=== PATIENT | male | born 1970 | race African-American/Black ===

== ENCOUNTER 2016-06-05 16:44 | Emergency (ER) | payer SELFPAY ==
[~2016-06-05] VITALS: Ht 180.3 cm; Wt 109.3 kg
[2016-06-05] MEDS ORDERED: IBUPROFEN600 MG ORAL (18:29)
[2016-06-05 18:47] VITALS: BP 121/81
--- NOTE | 2016-06-05 22:24 | Emergency Room Report ---
History of Present Illness General Chief Complaint: Lower Extremity Injury Source: Patient Present Illness HPI This is a 46-year-old male who presented after increased lower extremity pain to his left knee. Patient had gradual onset of symptoms. She denied prior history of similar pain. He reported having increased swelling. He denied any recent illness. 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 He denies prior history of gout. He denied any numbness or tingling to his lower extremities Allergies: Coded Allergies: No Known Allergies (Unverified , 06/05/16) Patient History Past Medical History: see triage record Reviewed Nursing Documentation: PMH: Agreed, PSxH: Agreed Nursing Documentation-PM Past Medical History: No Stated History Review of Systems All Other Systems: negative except mentioned in HPI Physical Exam Vital Signs Date Time Temp Pulse Resp B/P Pulse Ox O2 Delivery O2 Flow Rate FiO2 06/05/16 16:58 97.9 80 17 127/86 98 Room Air Sp02 EP Interpretation: reviewed, normal General Appearance: normal inspection, well appearing, no apparent distress, alert, GCS 15 Head: atraumatic ENT: normal ENT inspection, hearing grossly normal, normal voice Neck: normal inspection, full range of motion, supple, no bony tend Respiratory: normal inspection, lungs clear, normal breath sounds, no respiratory distress, no retraction, no wheezing Cardiovascular #1: regular rate, rhythm, no edema Gastrointestinal: normal inspection, normal bowel sounds, non tender, soft, no guarding, no hernia Genitourinary: no CVA tenderness Musculoskeletal: back normal, normal range of motion, swelling - left knee with slight laxity anterior drawer. Neurologic: normal inspection, alert, responsive, speech normal Psychiatric: normal inspection, judgement/insight normal, mood/affect normal Skin: normal inspection, normal color, no rash Medical Decision Making Diagnostic Impression: Primary Impression: Arthritis ER Course The patient presented for knee pain.Patient presented for knee pain. Differential diagnosis included was not limited to popliteal aneurysm, arthritis , dislocation, ligamentous injury, septic joint among others. imaging studies were ordered. The patient is advised to follow up with primary care doctor for orthopedic referral. Patient is advised that he may need MRI as well as further imaging. He is placed in an Etienne wrap. He declined crutches. Patient is advised to return if any worsening condition or if any changes in status that are concerning. Last Vital Signs Date Time Temp Pulse Resp B/P Pulse Ox O2 Delivery O2 Flow Rate FiO2 06/05/16 18:47 97.8 78 17 121/81 98 Room Air Status: improved Disposition: HOME, SELF-CARE Condition: Stable Scripts Ibuprofen* (MOTRIN*) 600 Mg Tablet 600 MG ORAL Q8H Y for For Pain, #30 TAB 0 Refills Prov: Garrison Martinez 06/05/16 Referrals: NOT CHOSEN [facility]/MD,REFERRING (PCP) Departure Forms: Return to Work Return to Work in (Days): 2 Other Restrictions: light duty Patient Instructions: Arthritis Garrison Martinez June 05, 2016 22:24
--- NOTE | 2016-06-06 12:47 | Diagnostic Imaging Report ---
Indication: Pain 3 views of the left knee were obtained. Findings: There is no fracture or malalignment identified. There is a probable joint effusion given opacification of the suprapatellar region. Impression: Suspected joint effusion
== END 2016-06-05 18:47 | disposition home or self-care (01) ==
LOC: EMR 18:09
DX: M19.90 Unspecified osteoarthritis, unspecified site (principal)
CPT/HCPCS: 99283